=== PATIENT | female | born 1965 | race Caucasian/White ===

== ENCOUNTER 2017-04-22 07:19 | Day surgery (SDC) | payer OTHER ==
--- NOTE | 2017-04-18 16:48 | HP ---
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 Recent mammogram showing 2 foci of calcifications right breast. Stereotactic core biopsy 03/20/2017 showed right breast 3:00 benign and right breast superior medial region LCIS. Breast MRI minimal enhancement around biopsy clips right 3: 00 7 cm fn and right superior medially no other findings. History Source: Patient Limitations to Obtaining History: No Limitations - Past Medical History ...LMP: 06/29/14 ...: No Psych: Yes: Anxiety, Depression - Past Surgical History Additional Past Surgical History: cat bites and scratches x2 2014 precancerous skin lesions abdomen excised Left breast wide excision for DCIS 04/2016 - Smoking History Smoking history: Never smoked Have you smoked in the past 12 months: No - Alcohol/Substance Use Hx Alcohol Use: Yes (SOCIALLY) Home Medications - Allergies Allergies/Adverse Reactions: Allergies Allergy/AdvReac Type Severity Reaction Status Date / Time vancomycin Allergy Severe Itching Verified 04/17/17 09:40 - Home Medications Home Medications: Ambulatory Orders Cholecalciferol (Vitamin D3) [Vitamin D3] 1,000 unit PO HS 05/07/16 Tamoxifen Citrate 20 mg PO HS 04/17/17 Venlafaxine HCl ER [Effexor Xr -] 37.5 mg PO HS 04/17/17 Family Disease History - Family Disease History Other Family History: mat cousin Breast ca 35 lives in [facility] and another at age 51 Physical Examination Constitutional: Yes: Well Nourished Breast(s): Yes: Other (diffusely nodular and dense without suspicious nodules.no adenopathy) Problem List - Problems (1) Lobular carcinoma in situ (LCIS) of right breast Code(s): D05.01 - LOBULAR CARCINOMA IN SITU OF RIGHT BREAST Assessment/Plan Right breast wide excision with mammogram needle localization
[2017-04-22 08:35] VITALS: BMI 26.9
[2017-04-22] MEDS ORDERED: MIDAZOLAM HCL 2 MG/2 ML SINGLE DOSE VIAL ONE (09:18)
[2017-04-22] MEDS ORDERED: ACETAMINOPHEN INJECTION 100 ML IVPB ONE (09:19)
[2017-04-22] MEDS ORDERED: LIDOCAINE HCL/PF 2% SDV 5ML VIAL ONE (10:05)
[2017-04-22] MEDS ORDERED: KETOROLAC TROMETHAMINE 30 MG/1 ML VIAL ONE (10:35)
[2017-04-22] MEDS ORDERED: ONDANSETRON 4 MG/2 ML VIAL ONE (10:35)
[2017-04-22] MEDS ORDERED: BUPIVACAINE HCL/PF 0.25% (2.5MG/ML) 10 ML VIAL IJ ONE ×2 (10:47)
[2017-04-22] MEDS ORDERED: ACETAMINOPHEN 1000 MG/100 ML VIAL (NON FORMULARY) IVPB ONE (11:10)
[2017-04-22] MEDS ORDERED: KETOROLAC TROMETHAMINE 30 MG/1 ML VIAL IVPUSH PRN (11:13)
[2017-04-22] MEDS ORDERED: ONDANSETRON 4 MG/2 ML VIAL IVPUSH PRN ×2 (11:13→18:00)
[2017-04-22] MEDS ORDERED: oxyCODONE HCL 5 MG TABLET PO PRN (11:13)
[2017-04-22] MEDS ORDERED: PROMETHAZINE HCL 25 MG/1 ML VIAL IVPUSH PRN (11:13)
[2017-04-22] MEDS ORDERED: LACTATED RINGERS SOLUTION 1,000 ML IV SCH (11:15)
[2017-04-22] MEDS ORDERED: DEXTROSE 5%-0.45% SALINE 1,000 ML IV SCH (11:15)
[2017-04-22 11:39] VITALS: TEMP 97.8
[2017-04-22] MEDS ORDERED: oxyCODONE HCL 5 MG TABLET ONE (12:11)
[2017-04-22 13:09] VITALS: BP 110/67; PULSE 63
--- NOTE | 2017-04-22 13:26 | OP ---
DATE OF OPERATION: 04/22/2017 PREOPERATIVE DIAGNOSIS: Right breast lobular carcinoma in situ. POSTOPERATIVE DIAGNOSIS: Right breast lobular carcinoma in situ. PROCEDURE: Right mammographic-localized partial mastectomy. ANESTHESIA: General intubated. ATTENDING SURGEON: Elfego Rivers MD RECONCILING CLERK: HENRI Orourke ESTIMATED BLOOD LOSS: Minimal. COMPLICATIONS: None. DESCRIPTION OF PROCEDURE: Patient was made aware of the risks and benefits of the procedure and consented. Patient preoperatively went to the radiology suite where a needle and wire were placed next to the index lesion. She was then placed in a supine position on the operating room table, and after general anesthesia was induced, the patient was intubated. The operative site was prepped and draped in the usual sterile fashion. A periareolar incision was made, and using electrocautery, thick skin flaps were made. The needle was withdrawn to the puncture site and a wire through the wound. Tissues around the wire were then sharply excised and submitted with a short suture superior, long suture lateral. Specimen radiograph confirmed the presence of the index lesion. The wound was then copiously irrigated with normal saline. Hemostasis maintained by electrocautery. Palpation of the wound revealed nothing suspicious. The deep tissues were closed with 2-0, then 3-0 Vicryl, followed by a running subcuticular 4-0 Monocryl. Dermabond was then applied, and the patient, having tolerated the procedure well, was transferred to the recovery room in excellent condition. ELFEGO RIVERS M.D. [id number]
--- NOTE | 2017-04-25 14:22 | PATH ---
Surgical Pathology Report Patient Name: ASHWIN GUERRA [facility]. Rec. #: [id number] /Age/Gender: 1965 (Age: 52) / F Account: [id number] Location: REPLACED BY [facility] Taken: 04/22/2017 Received: 04/23/2017 Reported: 04/25/2017 Physicians: Vernell Rivers M.D. Specimen(s) Received RIGHT BREAST WIDE EXCISION Clinical History LCIS Final Diagnosis BREAST, RIGHT, WIDE EXCISION: ATYPICAL LOBULAR HYPERPLASIA (ALH), FOCAL ATYPICAL DUCTAL HYPERPLASIA (ADH), COLUMNAR CELL CHANGES, CYSTIC APOCRINE METAPLASIA AND ASSOCIATED CALCIFICATIONS. PRIOR BIOPSY SITE CHANGES ARE PRESENT. Electronically Signed Ursula Padilla M.D. Gross Description Received in formalin, labeled "right breast wide excision," is a 4.0 x 3.1 x 2.2 cm. golden-yellow, irregular, portion of fibroadipose tissue. There is a needle localization wire separately received within the same container which appears to have detached from the specimen. There is a short suture marking the superior aspect and a long suture marking the lateral aspect, per the surgeon. There is no skin present. The specimen is inked as follows: superior and lateral blue; inferior green; medial yellow; anterior red; deep black. The specimen is serially sectioned from superior to inferior. Sectioning reveals diffuse dense, white fibrous tissue. No definitive masses are identified. The specimen is entirely and sequentially submitted from superior to inferior in 11 cassettes with the superior margin in cassette 1 and the inferior margin in cassette 11 (one whole bisected section each in cassettes 5/6 and 7/8). Time to formalin fixation: 4 minutes Total formalin fixation time: Approximately 31 hours. 04/23/2017 [facility]04/23/2017
== END 2017-04-22 13:10 | disposition home or self-care (01) ==
LOC: FASU 07:19
PROVIDERS: ATTEND Surgery Surgical Oncology
PROC: 0HBT0ZZ Excision of Right Breast, Open Approach (ICD-10-PCS; principal; 2017-04-22 09:57)
DX: D05.01 Lobular carcinoma in situ of right breast (principal)
CPT/HCPCS: 19281; 19301; 88307-TC; 94760